=== PATIENT | male | born 1955 ===

== ENCOUNTER 2022-05-22 07:30 | Day surgery (SDC) | payer OTHER ==
[~2022-05-22] VITALS: Ht 177.8 cm; Wt 83.6 kg
[~2022-05-22 07:30] MED LIST: ASPI325 PO; CARV6.25 PO; MELO7.5 PO; PLAVIX75 MG PO; ROSU10TA PO
--- NOTE | 2022-05-22 08:14 | NUR ---
History, Chart, Medications and Allergies reviewed before start of procedure. Lungs clear T/O to Auscultation. Patient confirms NPO status and agrees with scheduled surgery. Pre-Op teaching done. Pt verbalizes understanding. Patient States Post-Procedure ride home has been arranged. Patient states colon prep results clear.
--- NOTE | 2022-05-22 08:34 | NUR ---
05/22/22 0834 Jose Alcantar HISTORY, CHART, MEDICATIONS AND ALLERGIES REVIEWED BEFORE START OF PROCEDURE. PATIENT CONFIRMS NPO STATUS AND AGREES WITH SCHEDULED PROCEDURE. 3-LEAD EKG REVIEWED WITH PHYSICIAN PRIOR TO START OF PROCEDURE. MONITOR INTACT WITH CONTINUOUS PULSE OXIMETRY,CAPNOGRAPHY, 3-LEAD EKG, INTERMITTENT BP. SUPPLEMENTAL O2 TO BE TITRATED THROUGHOUT PROCEDURE TO MAINTAIN O2 SATURATION ABOVE 90%. PATIENT DETERMINED TO BE ASA APPROPRIATE FOR PROPOFOL SEDATION PRIOR TO START OF PROCEDURE BY
--- NOTE | 2022-05-22 09:32 | NUR ---
Patient up to Ambulate independently. Gait steady WITH STAND BY ASSIST. Discharge instructions reviewed with patient. Patient verbalizes understanding. Copy given to patient to take home INCLUDING FALL RISK BROCHURE. Discharged via wheelchair to private car for ride home WITH
== END 2022-05-22 09:33 | disposition home or self-care (01) ==
LOC: ORSCMMR 07:30 → ORD 08:30 → ORSCMMR 09:33
PROVIDERS: Internal Medicine Gastroenterology
PROC: 0DJD8ZZ Inspection of Lower Intestinal Tract, Via Natural or Artificial Opening Endoscopic (ICD-10-PCS; principal; 2022-05-22 08:30)
DX: Z12.11 Encounter for screening for malignant neoplasm of colon (principal); K64.8 Other hemorrhoids; I25.10 Atherosclerotic heart disease of native coronary artery without angina pectoris; I25.2 Old myocardial infarction; Z79.02 Long term (current) use of antithrombotics/antiplatelets; Z79.82 Long term (current) use of aspirin; Z79.899 Other long term (current) drug therapy
CPT/HCPCS: J2704; J7120